=== PATIENT | female | born 1950 | race Caucasian/White ===

== ENCOUNTER 2017-02-28 09:13 | Emergency (ER) | payer MEDICARE, BC | END 2017-02-28 10:29 | disposition home or self-care (01) | LOC: D.ER 09:13 | DX: M54.5 Low back pain (principal); M62.838 Other muscle spasm; S32.019A Unspecified fracture of first lumbar vertebra, initial encounter for closed fracture; X58.XXXA Exposure to other specified factors, initial encounter; Y93.89 Activity, other specified; Y92.029 Unspecified place in mobile home as the place of occurrence of the external cause ==